=== PATIENT | female | born 1980 | race Caucasian/White ===

== ENCOUNTER 2021-02-04 16:45 | Emergency (ER) | payer OTHER ==
[~2021-02-04] VITALS: Ht 172.7 cm; Wt 62.0 kg
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
--- NOTE | 2021-02-04 17:45 | NUR ---
PATIENT LEFT TO MRI
[2021-02-04] MEDS ORDERED: GADOTERATE 7.5 MMOL/15ML SYR ONE (18:10)
[2021-02-04 18:46] VITALS: BP 119/88
--- NOTE | 2021-02-04 18:59 | NUR ---
PATIENT REPORT GIVEN TO TAVON TAO
--- NOTE | 2021-02-04 19:02 | NUR ---
ALL RESULTS BACK CHART UP FOR RECHECK AT THIS TIME
--- NOTE | 2021-02-04 20:49 | NUR ---
Patient/Caregiver given discharge instructions and they have confirmed that they understand the instructions. Patient ambulatory with steady gait. NAD, all questions answered appropriately, denies additional needs at this time. No personal belongings left in room after discharge.
== END 2021-02-04 20:55 | disposition home or self-care (01) ==
LOC: ED 17:00
DX: R42 Dizziness and giddiness (principal); H57.89 Other specified disorders of eye and adnexa
CPT/HCPCS: 70553; 99285; A9575